=== PATIENT | male | born 2000 | race Caucasian/White ===

== ENCOUNTER 2023-02-16 10:15 | Emergency (ER) | payer MEDICARE, MEDICAID ==
[2023-02-16] MEDS ORDERED: Ketorolac Tromethamine 30 MG/ML VIAL ONE (10:57)
== END 2023-02-16 12:00 | disposition home or self-care (01) ==
LOC: MADERS 10:15
DX: R07.89 Other chest pain (principal)
CPT/HCPCS: 71046; 96372; J1885